=== PATIENT | male | born 1950 ===

== ENCOUNTER 2020-07-06 13:54 | Emergency (ER) | payer BC ==
[~2020-07-06 13:54] MED LIST: Clopidogrel 75 MG Tab PO ONE; Heparin Sodium 5,000 Units/ML Vial IVPUSH ONE; Heparin Sodium/0.45% NaCl 25,000 UNITS/500 ML BAG IV ONE; Morphine 2 MG/ML SYRINGE IVPUSH ONE; Morphine 2 MG/ML SYRINGE ONE; Tenecteplase 50 MG Kit IV ONE
--- NOTE | 2020-07-06 14:01 | CR ---
EXAMINATION: Chest 1V Frontal SEX: Male AGE: 70 years CLINICAL HISTORY: 70-year-old male complaining of chest pain. Interpretation: Abnormal. 1. *Patchy, peripheral, non consolidative densities scattered in both lung botello. COVID19 pneumonitis? 2. No alveolar infiltrates or air bronchograms. 3. No lung mass or hilar/mediastinal lymphadenopathy. 4. Generally poor inspiratory effort but normal cardiac silhouette without vascular congestion, cephalization of flow, alveolar edema or dependent pleural effusion. 5. No pneumothorax or pneumomediastinum. 6. Hypertrophic spondylosis. AP bony skeleton otherwise unremarkable. No free subdiaphragmatic air.
--- NOTE | 2020-07-06 14:13 | EDM.PDOC ---
ED HPI GENERAL MEDICAL PROBLEM - General Stated Complaint: AMBULANCE Time Seen by Provider: 07/06/20 13:44 Source of Information: Reports: Patient, EMS History Limitations: Reports: No Limitations - History of Present Illness INITIAL COMMENTS - FREE TEXT/NARRATIVE: This 70 yo male patient was brought to the ED by [facility] and [facility] due to substernal chest pain. The patient reports his pain is in the center of his chest and rates his pain at a 5/10 at the time of assessment. The patient reports his pain was initially a 10/10. The patient reports no previous similar symptoms. The patient was initially given 325 of aspirin and sublingual nitro by [facility]. [facility] arrived and started an IV due to a systolic blood pressure of 70. The patient was given 50 mcg of Fentanyl for pain which brought his pain level down to 6/10. 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 ED EXAM, GENERAL - Physical Exam Exam: See Below Exam Limited By: No Limitations General Appearance: Alert, WD/WN, Moderate Distress Eye Exam: Bilateral Eye: EOMI, Normal Inspection, PERRL Ears: Normal External Exam, Normal Canal, Hearing Grossly Normal, Normal TMs Nose: Normal Inspection, Normal Mucosa, No Blood Throat/Mouth: Normal Inspection, Normal Lips, Normal Teeth, Normal Gums, Normal Oropharynx, Normal Voice, No Airway Compromise Head: Atraumatic, Normocephalic Neck: Normal Inspection, Supple, Non-Tender, Full Range of Motion Respiratory/Chest: No Respiratory Distress, Lungs Clear, Normal Breath Sounds, No Accessory Muscle Use, Chest Non-Tender Cardiovascular: Normal Peripheral Pulses, Regular Rate, Rhythm, No Edema, No Gallop, No JVD, No Murmur, No Rub GI/Abdominal: Normal Bowel Sounds, Soft, Non-Tender, No Organomegaly, No Distention, No Abnormal Bruit, No Mass (Male) Exam: Deferred Rectal (Males) Exam: Deferred Back Exam: Normal Inspection, Full Range of Motion, NT Extremities: Normal Inspection, Normal Range of Motion, Non-Tender, Normal Capillary Refill, No Pedal Edema Neurological: Alert, Oriented, CN II-XII Intact, Normal Cognition, Normal Gait, Normal Reflexes, No Motor/Sensory Deficits Psychiatric: Normal Affect, Normal Mood Skin Exam: Warm, Dry, Intact, Normal Color, No Rash Lymphatic: No Adenopathy #1 Interpretation EKG Date: 07/06/20 Time: 13:44 Rhythm: Other (STEMI with ST elevation in leads 2, 3, AVF, V 4-6) Rate (Beats/Min): 61 P-Wave: Present QRS: Normal ST-T: Elevated Comparison: NA - No Prior EKG Course - Vital Signs Last Recorded V/S: Last Vital Signs Temp 95 F L 07/06/20 13:44 Pulse 60 07/06/20 13:44 Resp 18 07/06/20 13:44 BP 116/73 07/06/20 13:44 Pulse Ox 100 07/06/20 13:44 - Orders/Labs/Meds Orders: Active Orders 24 hr Category Date Time Status EKG Documentation Completion [RC] STAT Care 07/06/20 13:43 Active Heparin Sodium/0.45% NaCl [Heparin 25,000 Units in 1/2 Med 07/06/20 13:53 Active NS 500 ML] 25,000 units in 500 ml IV ONETIME Medication Orders Heparin Sodium/Sodium Chloride (Heparin 25,000 Units In 1/2 Ns 500 Ml) 25,000 units in 500 mls @ 21.685 mls/hr IV ONETIME ONE Stop: 07/07/20 12:56 Last Admin: 07/06/20 13:57 Dose: 12 units/kg/hr, 21.685 mls/hr Documented by: SILVER Cosigned by: GRISELDA Labs: Laboratory Tests 05/27/21 05/27/21 Range/Units 13:48 13:48 WBC 18.8 H (5.0-10.0) 10^3/uL RBC 4.40 L (4.6-6.2) 10^6/uL Hgb 13.4 L (14.0-18.0) g/dL Hct 39.6 L (40.0-54.0) % MCV 90.0 (80-100) fL MCH 30.5 (27.0-34.0) pg MCHC 33.8 (33.0-35.0) g/dL Plt Count 479 H (150-450) 10^3/uL Neut % (Auto) 42.9 (42.2-75.2) % Lymph % (Auto) 48.8 (20.5-50.1) % [place] % (Auto) 7.2 (2-8) % Eos % (Auto) 0.8 L (1.0-3.0) % Baso % (Auto) 0.3 (0.0-1.0) % Sodium 138 (136-145) mmol/L Potassium 4.0 (3.5-5.1) mmol/L Chloride 100 (98-107) mmol/L Carbon Dioxide 27 (21-32) mmol/L Anion Gap 15.0 H (7-13) mEq/L BUN 20 H (7-18) mg/dL Creatinine 1.20 (0.70-1.30) mg/dL Est Cr Clr Drug Dosing 59.99 mL/min Estimated GFR (MDRD) > 60 BUN/Creatinine Ratio 16.7 (No establ ref range) Glucose 204 H (70-99) mg/dL Calcium 8.5 (8.5-10.1) mg/dL Total Bilirubin 0.3 (0.2-1.0) mg/dL AST 35 (15-37) U/L ALT 96 H (16-63) U/L Alkaline Phosphatase 120 H (46-116) U/L Troponin I 0.037 (0.000-0.056) ng/mL Total Protein 6.8 (6.4-8.2) g/dL Albumin 3.3 L (3.4-5.0) g/dL Globulin 3.5 Albumin/Globulin Ratio 0.94 Meds: Medications Generic Name Dose Route Start Last Admin Trade Name Freq PRN Reason Stop Dose Admin Heparin Sodium/Sodium Chloride 25,000 units in 500 mls @ 21.685 mls/hr 07/06/20 13:53 07/06/20 13:57 Heparin 25,000 Units In 1/2 Ns 500 Ml IV 07/07/20 12:56 12 units/kg/hr ONETIME ONE 21.685 mls/hr Administration 12 UNITS/KG/HR Discontinued Medications Generic Name Dose Route Start Last Admin Trade Name Freq PRN Reason Stop Dose Admin Clopidogrel Bisulfate 300 mg 07/06/20 13:48 07/06/20 13:55 Clopidogrel 75 Mg Tab PO 07/06/20 13:49 300 mg ONETIME ONE Administration Heparin Sodium (Porcine) 4,000 units 07/06/20 13:53 07/06/20 13:59 Heparin Sodium 5,000 Units/Ml Vial IVPUSH 07/06/20 13:54 4,000 units .BOLUS ONE Administration Morphine Sulfate 2 mg 07/06/20 13:46 07/06/20 13:54 Morphine 2 Mg/Ml Syringe IVPUSH 07/06/20 13:47 2 mg ONETIME ONE Administration Morphine Sulfate Confirm 07/06/20 13:47 07/06/20 13:59 Morphine 2 Mg/Ml Syringe Administered 07/06/20 13:48 Not Given Dose 2 mg .ROUTE .STK-MED ONE Tenecteplase 50 mg 07/06/20 13:53 07/06/20 13:55 Tenecteplase 50 Mg Kit IV 07/06/20 13:54 50 mg ONETIME ONE Administration Protocol - Re-Assessments/Exams Free Text/Narrative Re-Assessment/Exam: 07/06/20 14:15 Call for accepting and transport made based on EKG transmitted by [facility] demonstrating a STEMI. The initial call was placed at 1335. Dr. Golden (Le[employer] Professor) accepted the patient at 1350. The patient arrived at our facility at 1344. [facility] was not available to fly. [facility] were requested and accepted the transport. Dr. Golden advised to give the patient Plavix (300 mg), TNK and Heparin (bolus and drip) prior to transport. Departure - Departure Time of Disposition: 14:21 Disposition: DC/Tfer to Acute Hospital 02 Reason for Transfer *Q: Other Condition: Critical Clinical Impression: STEMI (ST elevation myocardial infarction) Qualifiers: Involved coronary artery: unspecified coronary artery Qualified Code(s): I21.3 - ST elevation (STEMI) myocardial infarction of unspecified site Forms: Interfacility Transfer EMTALA Care Plan Goals: Discussed the patient's history, examination and EKG with Dr. Golden (Cardiology). Dr. Golden accepted the patient for continued evaluation and management. The patient will be transported by [facility]. Sepsis Event Note (ED) - Focused Exam Vital Signs: Vital Signs Temp Pulse Resp BP Pulse Ox 07/06/20 13:44 95 F L 60 18 116/73 100 - My Orders Last 24 Hours: My Active Orders 07/06/20 13:43 EKG Documentation Completion [RC] STAT 07/06/20 13:53 Heparin Sodium/0.45% NaCl [Heparin 25,000 Units in 1/2 NS 500 ML] 25,000 units in 500 ml IV ONETIME - Assessment/Plan Last 24 Hours: My Active Orders 07/06/20 13:43 EKG Documentation Completion [RC] STAT 07/06/20 13:53 Heparin Sodium/0.45% NaCl [Heparin 25,000 Units in 1/2 NS 500 ML] 25,000 units in 500 ml IV ONETIME
[2020-07-06 14:17] LABS: CHLORIDE,CL 100 mmol/L (98-107); SODIUM,NA 138 mmol/L (136-145)
== END 2020-07-06 15:41 ==
LOC: DL.ED 13:54
DX: I21.3 ST elevation (STEMI) myocardial infarction of unspecified site (principal)
CPT/HCPCS: 36415; 71045; 80053; 84484; 85025; 93005; 96365; 96366; 96375; 99285-25; A9270-GY; J1644; J2270; J3101